=== PATIENT | female | born 1970 ===

== ENCOUNTER 2018-05-31 11:00 | Outpatient (CLI) | payer MEDICARE | END 2018-05-31 11:01 | disposition home or self-care (01) | LOC: SLR 11:00 | DX: G47.33 Obstructive sleep apnea (adult) (pediatric) (principal); K21.9 Gastro-esophageal reflux disease without esophagitis | CPT/HCPCS: 95810 ==

== ENCOUNTER → 2018-06-07 | Outpatient (CLI) | payer MEDICARE | END | disposition home or self-care (01) | LOC: SLR 11:00 | PROVIDERS: ATTEND Otolaryngology | DX: G47.33 Obstructive sleep apnea (adult) (pediatric) (principal) | CPT/HCPCS: 95811 ==